=== PATIENT | male | born 2000 | race African-American/Black ===

== ENCOUNTER 2018-01-11 20:16 | Emergency (ER) | payer BC ==
[~2018-01-11] VITALS: Ht 172.7 cm; Wt 102.1 kg
[~2018-01-11 20:16] MED LIST: ALBUTEROL
== END 2018-01-11 21:10 | disposition home or self-care (01) ==
LOC: FSED 20:16
DX: H92.03 Otalgia, bilateral (principal); H66.003 Acute suppurative otitis media without spontaneous rupture of ear drum, bilateral
CPT/HCPCS: 99282

== ENCOUNTER 2024-01-11 17:36 | Emergency (ER) | payer BC ==
[~2024-01-11] VITALS: Ht 152.4 cm; Wt 122.5 kg
[2024-01-11 17:58] VITALS: PULSE 97; RESP 20; TEMP 99.8
[2024-01-11 18:26] LABS: BASOPHILS % 0.4 % (0.0-1.0); LYMPHOCYTES # (AUTO) 1.2 (1.0-3.2); LYMPHOCYTES % 15.7 % (18.0-39.1); MEAN CORPUSCULAR HEMOGLOBIN 30.2 pg (28-32); MEAN CORPUSCULAR HGB CONC 34.1 g/dL (31-35); MEAN CORPUSCULAR VOLUME 88.6 fL (81-99); MONOCYTES # (AUTO) 0.7 (0.2-0.8); MONOCYTES % 9.8 % (4.4-11.3); NEUTROPHILS # (AUTO) 5.4 (2.1-6.9); NEUTROPHILS % 73.8 % (38.7-80.0); PLATELET COUNT 208 x10e3/uL (140-360); RED BLOOD COUNT 4.63 x10e6/uL (4.3-5.7); RED CELL DISTRIBUTION WIDTH 12.3 % (11.7-14.4); WHITE BLOOD COUNT 7.31 x10e3/uL (4.8-10.8)
[2024-01-11] MEDS: ALBUTEROL SULF 0.083% NEB SOLN 3 ML NEB NEB STA (18:30)
[2024-01-11] MEDS: IPRATROPIUM BROMIDE 0.02% 2.5 ML NEB NEB ONE (18:32)
[2024-01-11] MEDS: METHYLPREDNISOLONE SOD SUCC 125 MG/2ML VIAL IV ONE (18:34)
[2024-01-11 18:35] LABS: ANION GAP 14.1 mmol/L (8-16); CALCIUM 9.2 mg/dL (8.4-10.2); CREATININE, SERUM 0.87 mg/dL (0.72-1.25)
[2024-01-11 18:37] LABS: POTASSIUM 3.1 mmol/L (3.5-5.1)
[2024-01-11] MEDS: ONDANSETRON HCL INJ 2MG/ML 2ML 2 MG/ML VIAL IV STA (18:39)
[2024-01-11] MEDS ORDERED: ONDANSETRON HCL INJ 2MG/ML 2ML 2 MG/ML VIAL ONE (18:40)
[2024-01-11] MEDS ORDERED: VENTOLIN HFA18 GM INH (19:56)
[2024-01-11] MEDS ORDERED: MEDROL4 M2 PO (19:56)
[2024-01-11 20:41] VITALS: BP 129/52; PULSE 74; RESP 18; TEMP 98; O2SAT 99
== END 2024-01-11 20:05 | disposition home or self-care (01) ==
LOC: ER 18:18
DX: R50.9 Fever, unspecified (principal); J45.901 Unspecified asthma with (acute) exacerbation; R05.9 Cough, unspecified; R94.31 Abnormal electrocardiogram [ECG] [EKG]
CPT/HCPCS: 36415; 71045; 80048; 84484; 85025; 93005; 99284; J2405; J2919; U0002

== ENCOUNTER 2024-05-24 16:20 | Emergency (ER) | payer BC ==
[~2024-05-24] VITALS: Ht 172.7 cm; Wt 122.5 kg
[~2024-05-24 16:20] MED LIST changes: +MEDROL4 M2 PO; +VENTOLIN HFA18 GM INH
[2024-05-24 17:15] VITALS: PULSE 71; RESP 16; TEMP 98.5; O2SAT 98
== END 2024-05-24 21:20 | disposition short-term general hospital (02) ==
LOC: ER 21:19
DX: M54.50 Low back pain, unspecified (principal)